=== PATIENT | male | born 1960 | race Caucasian/White ===

== ENCOUNTER 2022-11-04 09:42 | Inpatient (IN) | payer OTHER, MEDICAID ==
[~2022-11-04] VITALS: Ht 177.8 cm; Wt 99.5 kg
[2022-11-04 10:54] LABS: Basophils # (auto) 0 10 ^3/uL (0-0.2); Basophils % (auto) 0.2 % (0.0-2.0); Eosinophils # (auto) 0 10 ^3/uL (0-0.8); Eosinophils % (auto) 0.4 % (0.0-7.0); Hematocrit 37.3 % (41.0-53.0); Hemoglobin 11.9 g/dL (13.5-17.5); Lymphocytes # (auto) 0.6 10 ^3/uL (0.4-5.4); Lymphocytes % (auto) 5.4 % (10.0-50.0); Mean Corpuscular Hemoglobin 28.9 pg (28.0-32.0); Mean Corpuscular Hgb Conc. 31.8 g/dL (32.0-36.0); Mean Corpuscular Volume 91.1 fL (80.0-100.0); Monocytes # (auto) 0 10 ^3/uL (0-1.3); Monocytes % (auto) 0.2 % (0.0-12.0); Neutrophils # (auto) 9.6 10 ^3/uL (1.6-8.6); Neutrophils % (auto) 93.8 % (37.0-80.0); Nucleated Red Blood Cells % 0.2 %; Red Cell Distribution Width 19.2 % (11.8-14.3); White Blood Cell 10.3 10^3/uL (4.4-10.8)
[2022-11-04 11:23] LABS: Albumin 2.1 g/dL (3.4-5.0); Calcium 8.7 mg/dL (8.5-10.1); Potassium 4.7 mmol/L (3.5-5.1)
[2022-11-04 11:27] LABS: BUN/Creatinine Ratio 24.4; Bilirubin, Total 1.4 mg/dL (0.2-1.0); Total Protein 6.2 g/dL (6.4-8.2); Uric Acid 4.1 mg/dL (3.5-7.2)
[2022-11-04] MEDS ORDERED: METOCLOPRAMIDE HCL 5MG/ml INJ 2ml VIAL IV ONE (12:15)
[2022-11-04] MEDS ORDERED: MAGNESIUM SULFATE 1GM/100ML 100 ML IV ONE (12:15)
[2022-11-04] MEDS ORDERED: diphenhdrAMINE HCL 50 MG/1 ML VL IV ONE (12:15)
[2022-11-04] MEDS ORDERED: DexAMETHasone SOD PHOS 10MG/1ML VIAL INJ IV ONE (12:15)
[2022-11-04] MEDS ORDERED: LACTATED RINGER'S 1,000 ML IV ONE (12:15)
[2022-11-04] MEDS ORDERED: IOHEXOL 350 MG/ML 100ML IJ ONE (12:34)
[2022-11-04] MEDS ORDERED: LORazepam 0.5 MG TAB PO PRN (17:30)
[2022-11-04] MEDS ORDERED: DOCUSATE SOD 100 MG CAP PO PRN (17:30)
[2022-11-04] MEDS ORDERED: DEXTROSE (50%) 50ML SYRG IV PRN (17:30)
[2022-11-04] MEDS ORDERED: TEMAZEPAM 15 MG CAP PO PRN (17:30)
[2022-11-04] MEDS ORDERED: MAALOX PLUS or MAALOX 30 ML PO PRN (17:30)
[2022-11-04] MEDS ORDERED: ACETAMINOPHEN 325 MG TAB PO PRN (17:30)
[2022-11-04] MEDS ORDERED: ONDANSETRON HCL 4 MG/2 ML VIAL IV PRN (17:30)
[2022-11-04 19:32] LABS: Basophils # (auto) 0 10 ^3/uL (0-0.2); Basophils % (auto) 0.1 % (0.0-2.0); Eosinophils # (auto) 0 10 ^3/uL (0-0.8); Eosinophils % (auto) 0.5 % (0.0-7.0); Hemoglobin 10.7 g/dL (13.5-17.5); Lymphocytes # (auto) 0.4 10 ^3/uL (0.4-5.4); Lymphocytes % (auto) 5.9 % (10.0-50.0); Mean Corpuscular Hemoglobin 29.3 pg (28.0-32.0); Mean Corpuscular Hgb Conc. 32.5 g/dL (32.0-36.0); Mean Corpuscular Volume 90.2 fL (80.0-100.0); Monocytes # (auto) 0 10 ^3/uL (0-1.3); Monocytes % (auto) 0.4 % (0.0-12.0); Neutrophils # (auto) 6.5 10 ^3/uL (1.6-8.6); Neutrophils % (auto) 93.1 % (37.0-80.0); Red Blood Cells 3.66 10^6/uL (4.5-5.90); Red Cell Distribution Width 19.3 % (11.8-14.3); White Blood Cell 6.9 10^3/uL (4.4-10.8)
[2022-11-04 20:01] LABS: Urine Bacteria NONE SEEN /hpf (None Seen); Urine Blood Negative /uL (Negative); Urine Mucus FEW (None Seen); Urine WBC 3 /hpf (0 - 3)
[2022-11-04] MEDS: SODIUM CHLORIDE 0.9% 1,000 ML IV SCH (20:30)
[2022-11-04] MEDS: InsuLIN REG 1unit/0.01ml Soln (100units/ml) SC SCH (20:40)
[2022-11-04] MEDS: ACCU-CHEK COMFORT CURVE STRIP VI SCH (20:40)
[2022-11-04 22:00] VITALS: BP 115/81
[2022-11-04] MEDS ORDERED: ATEN25TA PO (23:16)
[2022-11-04] MEDS ORDERED: FERR325T20 PO (23:16)
[2022-11-04] MEDS ORDERED: PRAV20TA3 PO (23:16)
[2022-11-05] MEDS: ACCU-CHEK COMFORT CURVE STRIP VI SCH ×7 (00:47→23:29)
[2022-11-05] MEDS: InsuLIN REG 1unit/0.01ml Soln (100units/ml) SC SCH ×7 (01:00→23:32)
[2022-11-05 05:00] VITALS: BP 120/79
[2022-11-05 07:17] LABS: Potassium 4.3 mmol/L (3.5-5.1)
[2022-11-05 07:26] LABS: BUN/Creatinine Ratio 28.1; Calcium 8.4 mg/dL (8.5-10.1)
[2022-11-05 08:00] VITALS: BP 114/72
[2022-11-05 12:00] VITALS: BP 114/70
[2022-11-05] MEDS: MORPHINE SULFATE INJ 2 MG/ml SYRG IV PRN (13:47)
[2022-11-05 16:00] VITALS: BP 124/77
[2022-11-05] MEDS: SODIUM CHLORIDE 0.9% 1,000 ML IV SCH (17:00)
[2022-11-05 21:49] VITALS: BP 107/61
[2022-11-05] MEDS ORDERED: LORazepam 2MG/ML-1ML VIAL IV PRN (23:45)
[2022-11-06] MEDS: SODIUM CHLORIDE 0.9% 1,000 ML IV SCH ×2 (02:50→19:30)
[2022-11-06] MEDS: ACCU-CHEK COMFORT CURVE STRIP VI SCH ×5 (03:56→20:28)
[2022-11-06] MEDS: InsuLIN REG 1unit/0.01ml Soln (100units/ml) SC SCH ×5 (03:57→20:31)
[2022-11-06 04:48] VITALS: BP 116/75
[2022-11-06] MEDS: HYDROcodone-ACET 5/325MG TAB PO PRN ×3 (06:25→20:36)
[2022-11-06 08:30] VITALS: BP 114/82
[2022-11-06] MEDS: MORPHINE SULFATE INJ 2 MG/ml SYRG IV PRN (10:43)
[2022-11-06 13:00] VITALS: BP 112/82
[2022-11-06 16:56] VITALS: BP 121/80
[2022-11-06 22:00] VITALS: BP 128/82
[2022-11-07] MEDS: HYDROcodone-ACET 5/325MG TAB PO PRN ×3 (02:58→17:04)
[2022-11-07] MEDS: InsuLIN REG 1unit/0.01ml Soln (100units/ml) SC SCH ×5 (03:25→16:56)
[2022-11-07] MEDS: ACCU-CHEK COMFORT CURVE STRIP VI SCH ×5 (03:25→16:56)
[2022-11-07 05:00] VITALS: BP 119/82
[2022-11-07] MEDS: SODIUM CHLORIDE 0.9% 1,000 ML IV SCH (06:54)
[2022-11-07 08:20] VITALS: BP 117/85
[2022-11-07 11:44] VITALS: BP 117/81
[2022-11-07 16:49] VITALS: BP 136/95
== END 2022-11-07 19:10 | DRG 74 ==
LOC: ER 09:42 → EDBD 09:42 → OVERFLOW 17:19 → WEST WING 21:49
PROVIDERS: ADMIT Hospitalist; ATTEND Family Medicine
DX: G62.0 Drug-induced polyneuropathy (principal); C78.7 Secondary malignant neoplasm of liver and intrahepatic bile duct; E86.0 Dehydration; E11.65 Type 2 diabetes mellitus with hyperglycemia; F31.9 Bipolar disorder, unspecified; I10 Essential (primary) hypertension; T45.1X5A Adverse effect of antineoplastic and immunosuppressive drugs, initial encounter; G56.00 Carpal tunnel syndrome, unspecified upper limb; H53.8 Other visual disturbances; Z20.822 Contact with and (suspected) exposure to COVID-19; M54.2 Cervicalgia; Z60.2 Problems related to living alone; Y92.89 Other specified places as the place of occurrence of the external cause; Z80.52 Family history of malignant neoplasm of bladder; Z85.038 Personal history of other malignant neoplasm of large intestine; Z90.49 Acquired absence of other specified parts of digestive tract
CPT/HCPCS: 36415; 70496; 70547; 70551; 80048; 80053; 81001; 82962; 83615; 84100; 84550; 85025; 87426; 93005; 93971; 96365; 96366; 96372; 96375; 97110; 97163; 97530; G0378; J1100; J1815